=== PATIENT | male | born 1975 | race American Indian/Alaskan Native ===

== ENCOUNTER 2018-08-25 13:57 | Emergency (ER) | payer MEDICAID ==
[2018-08-25 14:08] VITALS: BP 145/101
--- NOTE | 2018-08-25 15:51 | Emergency Department Report ---
ED General Adult HPI - General Chief complaint: Medical Clearance Stated complaint: GENERAL SICKNESS Time Seen by Provider: 08/25/18 15:18 Source: patient Mode of arrival: Ambulatory Limitations: Other - History of Present Illness Initial comments: 43-year-old male presents to the ED initially with complaints of wanting to get his whole body "checked out." Patient reports history of chronic neck and back pain and is having an exacerbation of this time. He also states he would like to get a refill on his asthma pump, and needs to get eyeglasses. -: unknown Location: neck, back Radiation: non-radiation Quality: aching Improves with: rest Worsens with: movement Associated Symptoms: denies: fever/chills, nausea/vomiting, shortness of breath - Related Data Previous Rx's Medication Instructions Recorded Last Taken Type ALBUTEROL Inhaler(NF) [VENTOLIN 1 puff IH Q4HR PRN #1 inha 08/25/18 Unknown Rx Inhaler(NF)] Naproxen [Naprosyn] 500 mg PO BID #20 tablet 08/25/18 Unknown Rx Allergies Allergy/AdvReac Type Severity Reaction Status Date / Time No Known Allergies Allergy Unverified 08/25/18 14:08 ED Review of Systems ROS: Stated complaint: GENERAL SICKNESS Other details as noted in HPI Comment: All other systems reviewed and negative Constitutional: denies: chills, fever Respiratory: denies: cough, shortness of breath Cardiovascular: denies: chest pain Musculoskeletal: back pain ED Past Medical Hx - Past Medical History Previous Medical History?: Yes Hx Seizures: Yes - Surgical History Past Surgical History?: No - Social History Smoking Status: Current Every Day Smoker Substance Use Type: None - Medications Home Medications: Home Medications Medication Instructions Recorded Confirmed Last Taken Type ALBUTEROL Inhaler(NF) [VENTOLIN 1 puff IH Q4HR PRN #1 inha 08/25/18 Unknown Rx Inhaler(NF)] Naproxen [Naprosyn] 500 mg PO BID #20 tablet 08/25/18 Unknown Rx ED Physical Exam - General Limitations: Other General appearance: alert, in no apparent distress - Head Head exam: Present: atraumatic, normocephalic - Eye Eye exam: Present: normal appearance - ENT ENT exam: Present: mucous membranes moist - Neck Neck exam: Present: normal inspection, tenderness (mild paraspinal tenderness present), full ROM - Respiratory Respiratory exam: Present: normal lung sounds bilaterally. Absent: respiratory distress - Cardiovascular Cardiovascular Exam: Present: regular rate, normal rhythm - GI/Abdominal GI/Abdominal exam: Present: soft. Absent: distended, tenderness - Extremities Exam Extremities exam: Present: normal inspection, full ROM - Back Exam Back exam: Present: normal inspection. Absent: tenderness - Neurological Exam Neurological exam: Present: alert, normal gait - Psychiatric Psychiatric exam: Present: normal affect, normal mood - Skin Skin exam: Present: warm, dry, intact, normal color ED Course Vital Signs 08/25/18 14:05 Temperature 98.9 F Pulse Rate 94 H Respiratory 16 Rate Blood Pressure 145/101 O2 Sat by Pulse 98 Oximetry Critical care attestation.: If time is entered above; I have spent that time in minutes in the direct care of this critically ill patient, excluding procedure time. ED Disposition Clinical Impression: Chronic pain, Medication refill Disposition: - TO HOME OR SELFCARE Is pt being admited?: No Condition: Stable Instructions: Chronic Pain (ED) Prescriptions: ALBUTEROL Inhaler(NF) [VENTOLIN Inhaler(NF)] 1 puff IH Q4HR PRN #1 inha PRN Reason: Wheezing Naproxen [Naprosyn] 500 mg PO BID #20 tablet Referrals: [facility] [Provider Group] - 3-5 Days [facility] [Outside] - 3-5 Days Time of Disposition: 15:51
== END 2018-08-25 16:20 | disposition home or self-care (01) ==
LOC: ED 13:57
DX: G89.29 Other chronic pain (principal); M54.2 Cervicalgia; M54.9 Dorsalgia, unspecified; Z76.0 Encounter for issue of repeat prescription; F17.200 Nicotine dependence, unspecified, uncomplicated
CPT/HCPCS: 99282

== ENCOUNTER 2019-01-27 22:42 | Emergency (ER) | payer MEDICAID ==
--- NOTE | 2019-01-27 23:49 | XRay Report ---
PROCEDURE: Right hand. TECHNIQUE: 2 views. HISTORY: Pain at base of thumb that started on Tuesday. COMPARISONS: None. FINDINGS: The bones appear intact without fracture or dislocation. The joint spaces appear normal. The soft tis sues are unremarkable. IMPRESSION: Normal study. This document is electronically signed by Yohannes Thomas MD., January 27 2019 11:46:43 PM ET
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
[2019-01-28 06:40] VITALS: BP 122/72
== END 2019-01-28 07:16 | disposition home or self-care (01) ==
LOC: ED 22:42
DX: S63.621A Sprain of interphalangeal joint of right thumb, initial encounter (principal); I10 Essential (primary) hypertension; E11.9 Type 2 diabetes mellitus without complications; F17.200 Nicotine dependence, unspecified, uncomplicated; Z21 Asymptomatic human immunodeficiency virus [HIV] infection status; W51.XXXA Accidental striking against or bumped into by another person, initial encounter; Y93.89 Activity, other specified; Y92.488 Other paved roadways as the place of occurrence of the external cause; Y99.8 Other external cause status
CPT/HCPCS: 99283

== ENCOUNTER 2019-02-06 15:32 | Emergency (ER) | payer MEDICAID ==
[2019-02-06 16:15] VITALS: BP 123/89
--- NOTE | 2019-02-06 16:16 | Emergency Department Report ---
Chief Complaint: Medical Clearance Stated Complaint: SUBSTANCE ABUSE Time Seen by Provider: 02/06/19 16:12 - HPI History of Present Illness: This is a 43 y.o. male that presents to ER for help detoxing from substance abuse. Patient states he last used cocaine 2 days ago. Denies SI/HI. - Exam Vital Signs: Vital Signs 02/06/19 16:12 Temperature 97.7 F Pulse Rate 106 H Respiratory 18 Rate Blood Pressure 123/89 O2 Sat by Pulse 99 Oximetry MSE screening note: Focused history and physical exam performed. Due to findings the following was ordered: labs ED Disposition for MSE Condition: Stable
[2019-02-06 17:22] LABS: Hematocrit 44.9 % (35.5-45.6); Hemoglobin 15.2 gm/dl (11.8-15.2); Mean Corpuscular HGB Conc 34 % (32-34); Mean Corpuscular Volume 94 fl (84-94); Platelet Count 142 K/mm3 (140-440); Red Cell Distribution Width 14.1 % (13.2-15.2)
[2019-02-06 17:26] LABS: Bilirubin,Urine NEG (Negative); Blood,Urine NEG (Negative); Color,Urine Amber (Yellow); Protein,Urine <15 mg/dL mg/dL (Negative)
[2019-02-06 17:33] LABS: Amphetamine Screen,Urine PRESUMPTIVE NEGATIVE; Benzodiazepines Screen,Urine PRESUMPTIVE NEGATIVE; Cannabinoid Screen,Urine PRESUMPTIVE NEGATIVE; Cocaine Screen,Urine PRESUMPTIVE NEGATIVE; Methadone Screen,Urine PRESUMPTIVE NEGATIVE; Opiate Screen,Urine PRESUMPTIVE NEGATIVE
[2019-02-06 17:36] LABS: BUN/Creatinine Ratio 8; Blood Urea Nitrogen 8 mg/dL (9-20); Calcium 8.6 mg/dL (8.4-10.2); Hemolysis Index 12
[2019-02-06 19:10] LABS: Basophils % (Manual) 0 % (0.0-1.8); Total Cells Counted 100
[2019-02-06 19:11] LABS: Anisocytosis 1+; Platelet Estimate Consistent w Auto
[2019-02-06 19:12] LABS: Ovalocytes Few
== END 2019-02-06 19:00 | disposition left against medical advice (07) ==
LOC: ED 15:32
DX: F14.10 Cocaine abuse, uncomplicated (principal); Z53.21 Procedure and treatment not carried out due to patient leaving prior to being seen by health care provider
CPT/HCPCS: 36415; 80048; 80307; 81001; 85007; 85025; G0480; 80320

== ENCOUNTER 2019-02-23 16:44 | Emergency (ER) | payer MEDICAID ==
[2019-02-23 16:49] VITALS: BP 125/85
[2019-02-23] MEDS ORDERED: PROVENTIL IH ONE (16:52)
[2019-02-23] MEDS ORDERED: DELTASONE PO ONE (16:52)
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
== END 2019-02-23 17:00 | disposition home or self-care (01) ==
LOC: ED 16:44
DX: J06.9 Acute upper respiratory infection, unspecified (principal); J45.909 Unspecified asthma, uncomplicated; I10 Essential (primary) hypertension; E11.9 Type 2 diabetes mellitus without complications; F14.10 Cocaine abuse, uncomplicated; Z21 Asymptomatic human immunodeficiency virus [HIV] infection status
CPT/HCPCS: 94640; 99283; J7512

== ENCOUNTER 2019-03-07 20:36 | Emergency (ER) | payer MEDICAID ==
--- NOTE | 2019-03-07 21:04 | Emergency Department Report ---
Blank Doc - Documentation Documentation: This is a 43-year-old male that presents with abdominal pain with n/v. This initial assessment/diagnostic orders/clinical plan/treatment(s) is/are subject to change based on patient's health status, clinical progression and re- assessment by fellow clinical providers in the ED. Further treatment and workup at subsequent clinical providers discretion. Patient/guardians urged not to elope from the ED as their condition may be serious if not clinically assessed and managed. Initial orders include: 1- Patient sent to [facility] for further evaluation and treatment 2- labs 3- UA
[2019-03-07 21:06] VITALS: BP 143/96
[2019-03-07 21:42] LABS: Bilirubin,Urine NEG (Negative); Blood,Urine NEG (Negative); Color,Urine Yellow (Yellow); Protein,Urine <15 mg/dL mg/dL (Negative)
[2019-03-07 23:04] LABS: Hematocrit 44.3 % (35.5-45.6); Hemoglobin 15.2 gm/dl (11.8-15.2); Mean Corpuscular HGB Conc 34 % (32-34); Mean Corpuscular Volume 94 fl (84-94); Platelet Count 126 K/mm3 (140-440); Red Blood Count 4.71 M/mm3 (3.65-5.03); Red Cell Distribution Width 14.2 % (13.2-15.2)
[2019-03-07 23:05] LABS: Basophils % (Auto) 0.5 % (0.0-1.8); Eosinophils # (Auto) 0.2 K/mm3 (0.0-0.4); Lymphocytes # (Auto) 1.4 K/mm3 (1.2-5.4); Lymphocytes % (Auto) 44.9 % (13.4-35.0); Monocytes # (Auto) 0.4 K/mm3 (0.0-0.8)
[2019-03-07 23:13] LABS: Alanine Aminotransferase 99 units/L (7-56); Albumin 3.6 g/dL (3.9-5); BUN/Creatinine Ratio 5; Bilirubin,Direct 0.5 mg/dL (0-0.2); Blood Urea Nitrogen 6 mg/dL (9-20); Hemolysis Index 7
[2019-03-08] MEDS ORDERED: TORADOL IV ONE (00:10)
[2019-03-08] MEDS ORDERED: ZOFRAN IV ONE (00:10)
[2019-03-08] MEDS ORDERED: NACL 0.9% 1000 ML 1,000 ML IV ONE (00:10)
--- NOTE | 2019-03-08 00:22 | Emergency Department Report ---
ED Abdominal Pain HPI - General Chief Complaint: Abdominal Pain Stated Complaint: ABD PAIN Time Seen by Provider: 03/07/19 21:03 Source: patient Mode of arrival: Ambulatory Limitations: No Limitations - History of Present Illness Initial Comments: pt is a 6 history of seizures, diabetes, HIV, hypertension, and schizophrenia who presents for abdominal pain with n/v 5 days symptoms exacerbated by eating symptoms relieved by nothing. Pt denies fever or chills last n/v yesterday , last po intake 5 hrs ago. MD Complaint: abdominal pain Onset/Timin -: days(s) Location: RUQ Radiation: none Migration to: no migration Severity: moderate Severity scale (0 -10): 10 Quality: aching, sharp Consistency: constant Improves With: nothing Worsens With: eating Associated Symptoms: nausea, vomiting. denies: diarrhea, fever, dysuria - Related Data Previous Rx's Medication Instructions Recorded Last Taken Type Haloperidol [Haldol] 5 mg PO BID #60 tablet 10/12/18 Unknown Rx predniSONE [Deltasone] 40 mg PO QDAY 5 Days #10 tab 10/17/18 Unknown Rx ALBUTEROL Inhaler (OR & NICU) 2 puff IH QID PRN #1 inhalation 02/23/19 Unknown Rx [ProAir HFA Inhaler] Amoxicillin 500 mg PO BID #20 capsule 02/23/19 Unknown Rx Benzonatate [Tessalon Perles] 100 mg PO Q12H PRN #20 capsule 02/23/19 Unknown Rx Fluticasone [Flonase] 1 spray NS QDAY #1 bottle 02/23/19 Unknown Rx predniSONE [Deltasone] 20 mg PO DAILY #5 tablet 02/23/19 Unknown Rx Allergies Allergy/AdvReac Type Severity Reaction Status Date / Time No Known Allergies Allergy Verified 02/23/19 16:51 ED Review of Systems ROS: Stated complaint: ABD PAIN Other details as noted in HPI Constitutional: denies: chills, fever Eyes: denies: eye pain, eye discharge, vision change ENT: denies: ear pain, throat pain Respiratory: denies: cough, shortness of breath, wheezing Cardiovascular: denies: chest pain, palpitations Endocrine: no symptoms reported Gastrointestinal: abdominal pain, nausea, vomiting. 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) Hx Diabetes: Yes Hx Seizures: Yes Hx Psychiatric Treatment: Yes (cocaine abuse) Hx HIV: Yes (no treatment received) Additional medical history: NECK AND BACK PAIN, Speech impedement - Surgical History Past Surgical History?: Yes Additional Surgical History: 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-BLOOD CLOTS - Social History Smoking Status: Current Every Day Smoker Substance Use Type: Alcohol - Medications Home Medications: Home Medications Medication Instructions Recorded Confirmed Last Taken Type Haloperidol [Haldol] 5 mg PO BID #60 tablet 10/12/18 Unknown Rx predniSONE [Deltasone] 40 mg PO QDAY 5 Days #10 tab 10/17/18 Unknown Rx ALBUTEROL Inhaler (OR & NICU) 2 puff IH QID PRN #1 inhalation 02/23/19 Unknown Rx [ProAir HFA Inhaler] Amoxicillin 500 mg PO BID #20 capsule 02/23/19 Unknown Rx Benzonatate [Tessalon Perles] 100 mg PO Q12H PRN #20 capsule 02/23/19 Unknown Rx Fluticasone [Flonase] 1 spray NS QDAY #1 bottle 02/23/19 Unknown Rx predniSONE [Deltasone] 20 mg PO DAILY #5 tablet 02/23/19 Unknown Rx ED Physical Exam - General Limitations: No Limitations General appearance: alert, in no apparent distress - Head Head exam: Present: atraumatic, normocephalic - Eye Eye exam: Present: normal appearance, PERRL, EOMI Pupils: Present: normal accommodation - ENT ENT exam: Present: normal orophraynx, mucous membranes moist, TM's normal bilaterally, normal external ear exam - Neck Neck exam: Present: normal inspection, full ROM. Absent: tenderness, meningismus, lymphadenopathy, thyromegaly - Respiratory Respiratory exam: Present: normal lung sounds bilaterally. Absent: respiratory distress, wheezes, stridor, chest wall tenderness - Cardiovascular Cardiovascular Exam: Present: regular rate, normal rhythm, normal heart sounds. Absent: systolic murmur, diastolic murmur, rubs, gallop - GI/Abdominal GI/Abdominal exam: Present: soft, tenderness (RUQ ), hyperactive bowel sounds. Absent: guarding, rebound, rigid, bruit, hernia - Rectal Rectal exam: Present: deferred - Extremities Exam Extremities exam: Present: normal inspection - Back Exam Back exam: Present: normal inspection, full ROM. Absent: tenderness, CVA tenderness (R), CVA tenderness (L), muscle spasm, paraspinal tenderness, vertebral tenderness, rash noted - Neurological Exam Neurological exam: Present: alert, oriented X3, CN II-XII intact, normal gait - Psychiatric Psychiatric exam: Present: normal affect, normal mood - Skin Skin exam: Present: warm, dry, intact, normal color. Absent: rash ED Course Vital Signs 03/07/19 21:04 Temperature 98.5 F Pulse Rate 103 H Respiratory 18 Rate Blood Pressure 143/96 O2 Sat by Pulse 100 Oximetry ED Medical Decision Making - Lab Data Result diagrams: 03/07/19 22:34 03/07/19 22:34 - Medical Decision Making Patient has eloped prior to completion of treatment and evaluation, condition is unkown , pt's contact number called x 3 with no answer, [facility] police notfied advised they attempt to locate patient Critical care attestation.: If time is entered above; I have spent that time in minutes in the direct care of this critically ill patient, excluding procedure time. ED Disposition Clinical Impression: Abdominal pain Qualifiers: Abdominal location: lower abdomen, unspecified Qualified Code(s): R10.30 - Lower abdominal pain, unspecified Disposition: 07 ELOPED Is pt being admited?: No Does the pt Need Aspirin: No Condition: Critical Instructions: Acute Abdominal Pain (ED) Referrals: ELIZABETH STREETER MD [Primary Care Provider] - 3-5 Days Time of Disposition: 03:49
--- NOTE | 2019-03-08 04:18 | Cat Scan Report ---
PROCEDURE: CT ABDOMEN PELVIS W CON TECHNIQUE: Computerized axial tomography of the abdomen and pelvis was performed after the IV inject ion of iodinated nonionic contrast. CT DOSE LENGTH PRODUCT: mGycm HISTORY: abd pain COMPARISONS: None . FINDINGS: Visualized lower thorax: No significant abnormality. Liver: Normal size and attenuation. Spleen: Normal size and attenuation. Gallbladder and biliary system: There is cholelithiasis. There is no cholecystitis or biliary ductal dilatation.. Pancreas: Normal. Adrenals: Normal. Kidneys: Normal. GI tract: There is no bowel obstruction, colitis or enteritis. The appendix is not discretely identi fied. There is no indirect evidence of appendicitis. . Lymph nodes and mesentery: Normal. Vasculature: Normal.. Bladder: Normal. Reproductive organs: Normal. Peritoneum: There is no ascites, free air, abscess or adenopathy.. Musculoskeletal structures: No significant abnormality. IMPRESSION: There is cholelithiasis. There is no cholecystitis or biliary ductal dilatation.. There is no bowel obstruction, colitis or enteritis. The appendix is not discretely identified. There is no indirect evidence of appendicitis. . There is no ascites, free air, abscess or adenopathy.. . This document is electronically signed by Kit Eubanks MD., March 08 2019 04:16:37 AM ET
== END 2019-03-08 02:25 | disposition left against medical advice (07) ==
LOC: ED 20:36
DX: R10.30 Lower abdominal pain, unspecified (principal); I10 Essential (primary) hypertension; E11.9 Type 2 diabetes mellitus without complications; F14.10 Cocaine abuse, uncomplicated; F17.200 Nicotine dependence, unspecified, uncomplicated; I25.2 Old myocardial infarction; Z79.899 Other long term (current) drug therapy
CPT/HCPCS: 36415; 74177; 80048; 80076; 81001; 83690; 85025; 99284; Q9967

== ENCOUNTER 2019-03-16 18:01 | Emergency (ER) | payer MEDICAID | END 2019-03-16 18:53 | disposition left against medical advice (07) | LOC: ED 18:01 | DX: R41.82 Altered mental status, unspecified (principal); Z53.21 Procedure and treatment not carried out due to patient leaving prior to being seen by health care provider ==

== ENCOUNTER 2019-04-17 15:40 | Emergency (ER) | payer MEDICAID ==
[2019-04-17 15:46] VITALS: BP 130/72
--- NOTE | 2019-04-17 15:47 | Emergency Department Report ---
Chief Complaint: Nausea/Vomiting/Diarrhea Stated Complaint: NAUSEA Time Seen by Provider: 04/17/19 15:44 - HPI History of Present Illness: This is a 43 y.o. M. that presents to the ER with decreased appetite x 5 days. Denies pain, n/v/d - Exam Vital Signs: Vital Signs 04/17/19 15:44 Temperature 97.9 F Pulse Rate 101 H Respiratory 18 Rate Blood Pressure 130/72 O2 Sat by Pulse 99 Oximetry MSE screening note: Focused history and physical exam performed. Due to findings the following was ordered: This initial assessment/diagnostic orders/clinical plan/treatment(s) is/are sub ject to change based on patient's health status, clinical progression and re- assessment by fellow clinical providers in the ED. Further treatment and workup at subsequent clinical providers discretion. Patient/guardians urged not to elope from the ED as their condition may be serious if not clinically assessed and managed. Initial orders include: 1- Patient sent to [facility] for further evaluation and treatment ED Disposition for MSE Condition: Stable
[2019-04-17 16:21] LABS: Hematocrit 42.2 % (35.5-45.6); Hemoglobin 14.1 gm/dl (11.8-15.2); Mean Corpuscular HGB Conc 33 % (32-34); Mean Corpuscular Volume 94 fl (84-94); Platelet Count 102 K/mm3 (140-440); Red Cell Distribution Width 14.5 % (13.2-15.2)
[2019-04-17 16:50] LABS: Alanine Aminotransferase 116 units/L (7-56); Albumin 3.2 g/dL (3.9-5); BUN/Creatinine Ratio 6; Blood Urea Nitrogen 7 mg/dL (9-20); Calcium 8.4 mg/dL (8.4-10.2); Hemolysis Index 6
[2019-04-17] MEDS ORDERED: NACL 0.9% 1000 ML 1,000 ML IV ONE (17:02)
[2019-04-17] MEDS ORDERED: ZOFRAN IV ONE (17:02)
[2019-04-17] MEDS ORDERED: K-DUR PO ONE (17:02)
[2019-04-17 18:46] LABS: Bacteria,Urine 1+ /HPF (Negative); Bilirubin,Urine NEG (Negative); Blood,Urine MOD (Negative); Color,Urine Yellow (Yellow); Mucus,Urine FEW /HPF; Protein,Urine <15 mg/dL mg/dL (Negative); WBC,Urine < 1.0 /HPF (0.0-6.0)
--- NOTE | 2019-04-17 20:27 | Emergency Department Report ---
ED General Adult HPI - General Chief complaint: Nausea/Vomiting/Diarrhea Stated complaint: NAUSEA Time Seen by Provider: 04/17/19 15:44 Source: patient, EMS Mode of arrival: Ambulatory Limitations: No Limitations - History of Present Illness Initial comments: 43-year-old Afro-[place] male with a reported past medical history hypertension, HIV, diabetes, illicit drug use, liver disease, seizure disorder, and TBI in childhood, presents to emergency department complaining of nausea. States he's been having some nausea off and on for the past several weeks, but denies any vomiting or diarrhea. Reports no chest pain or palpitations, no fever, chills, sweats, no presyncope. He reports no hematemesis, no hematochezia or no hematuria. Radiation: non-radiation Consistency: constant Improves with: none Worsens with: none Associated Symptoms: denies: confusion, chest pain, cough, diaphoresis, fever/chills, loss of appetite, malaise, nausea/vomiting, rash, shortness of breath, syncope, weakness Treatments Prior to Arrival: none - Related Data Previous Rx's Medication Instructions Recorded Last Taken Type Haloperidol [Haldol] 5 mg PO BID #60 tablet 10/12/18 Unknown Rx predniSONE [Deltasone] 40 mg PO QDAY 5 Days #10 tab 10/17/18 Unknown Rx ALBUTEROL Inhaler (OR & NICU) 2 puff IH QID PRN #1 inhalation 02/23/19 Unknown Rx [ProAir HFA Inhaler] Amoxicillin 500 mg PO BID #20 capsule 02/23/19 Unknown Rx Benzonatate [Tessalon Perles] 100 mg PO Q12H PRN #20 capsule 02/23/19 Unknown Rx Fluticasone [Flonase] 1 spray NS QDAY #1 bottle 02/23/19 Unknown Rx predniSONE [Deltasone] 20 mg PO DAILY #5 tablet 02/23/19 Unknown Rx Ondansetron [Zofran Odt] 4 mg PO Q8HR #20 tab.rapdis 04/17/19 Unknown Rx Potassium Chloride [K-Dur] 20 meq PO QDAY #7 tablet 04/17/19 Unknown Rx Allergies Allergy/AdvReac Type Severity Reaction Status Date / Time No Known Allergies Allergy Verified 04/17/19 15:40 ED Review of Systems ROS: Stated complaint: NAUSEA Other details as noted in HPI Constitutional: denies: chills, fever Eyes: denies: eye pain, eye discharge, vision change ENT: denies: ear pain, throat pain Respiratory: denies: cough, shortness of breath, wheezing Cardiovascular: denies: chest pain, palpitations Endocrine: no symptoms reported Gastrointestinal: denies: abdominal pain, nausea, diarrhea Genitourinary: denies: urgency, dysuria Musculoskeletal: 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) Hx Diabetes: Yes Hx Seizures: Yes Hx Psychiatric Treatment: Yes (cocaine abuse) Hx HIV: Yes (no treatment received) Additional medical history: NECK AND BACK PAIN, Speech impedement - Surgical History Additional Surgical History: 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-BLOOD CLOTS - Social History Smoking Status: Current Every Day Smoker Substance Use Type: None - Medications Home Medications: Home Medications Medication Instructions Recorded Confirmed Last Taken Type Haloperidol [Haldol] 5 mg PO BID #60 tablet 10/12/18 Unknown Rx predniSONE [Deltasone] 40 mg PO QDAY 5 Days #10 tab 10/17/18 Unknown Rx ALBUTEROL Inhaler (OR & NICU) 2 puff IH QID PRN #1 inhalation 02/23/19 Unknown Rx [ProAir HFA Inhaler] Amoxicillin 500 mg PO BID #20 capsule 02/23/19 Unknown Rx Benzonatate [Tessalon Perles] 100 mg PO Q12H PRN #20 capsule 02/23/19 Unknown Rx Fluticasone [Flonase] 1 spray NS QDAY #1 bottle 02/23/19 Unknown Rx predniSONE [Deltasone] 20 mg PO DAILY #5 tablet 02/23/19 Unknown Rx Ondansetron [Zofran Odt] 4 mg PO Q8HR #20 tab.rapdis 04/17/19 Unknown Rx Potassium Chloride [K-Dur] 20 meq PO QDAY #7 tablet 04/17/19 Unknown Rx ED Physical Exam - General Limitations: No Limitations General appearance: alert, in no apparent distress - Head Head exam: Present: atraumatic, normocephalic - Eye Eye exam: Present: normal appearance, PERRL Pupils: Present: normal accommodation - ENT ENT exam: Present: normal exam, normal orophraynx, mucous membranes moist - Neck Neck exam: Present: normal inspection - Respiratory Respiratory exam: Present: normal lung sounds bilaterally. Absent: respiratory distress, wheezes, rales, chest wall tenderness, accessory muscle use, decreased breath sounds - Cardiovascular Cardiovascular Exam: Present: regular rate, normal rhythm. Absent: systolic murmur, diastolic murmur, rubs, gallop - GI/Abdominal GI/Abdominal exam: Present: soft, normal bowel sounds. Absent: distended, guarding, hyperactive bowel sounds, hypoactive bowel sounds, mass - Rectal Rectal exam: Present: deferred, normal inspection. Absent: black stool, bloody stool, fecal impaction, normal prostate, prostate tenderness - Extremities Exam Extremities exam: Present: normal inspection, full ROM, normal capillary refill - Back Exam Back exam: Present: normal inspection, full ROM. Absent: CVA tenderness (R), CVA tenderness (L), muscle spasm, paraspinal tenderness, vertebral tenderness - Neurological Exam Neurological exam: Present: alert, oriented X3, CN II-XII intact, normal gait. Absent: reflexes normal - Psychiatric Psychiatric exam: Present: normal affect, normal mood. Absent: flat affect, manic, homicidal ideation, suicidal ideation - Skin Skin exam: Present: warm, dry, intact, normal color. Absent: rash, cyanosis, diaphoretic, erythema, urticaria, petechiae, pallor, abrasion ED Course Vital Signs 04/17/19 15:44 Temperature 97.9 F Pulse Rate 101 H Respiratory 18 Rate Blood Pressure 130/72 O2 Sat by Pulse 99 Oximetry ED Medical Decision Making - Lab Data Result diagrams: 04/17/19 16:07 04/17/19 16:07 Critical care attestation.: If time is entered above; I have spent that time in minutes in the direct care of this critically ill patient, excluding procedure time. ED Disposition Clinical Impression: Hypokalemia, Elevated liver enzymes, Nausea alone Disposition: - TO HOME OR SELFCARE Is pt being admited?: No Does the pt Need Aspirin: No Condition: Stable Instructions: Acute Nausea and Vomiting (ED), Hypokalemia (ED) Prescriptions: Potassium Chloride [K-Dur] 20 meq PO QDAY #7 tablet Ondansetron [Zofran Odt] 4 mg PO Q8HR #20 tab.rapdis Referrals: ELIZABETH STREETER MD [Primary Care Provider] - 3-5 Days
== END 2019-04-17 21:09 | disposition home or self-care (01) ==
LOC: ED 15:40
DX: E87.6 Hypokalemia (principal); R94.5 Abnormal results of liver function studies; I10 Essential (primary) hypertension; E11.9 Type 2 diabetes mellitus without complications; Z21 Asymptomatic human immunodeficiency virus [HIV] infection status; G40.909 Epilepsy, unspecified, not intractable, without status epilepticus; F14.10 Cocaine abuse, uncomplicated; F17.200 Nicotine dependence, unspecified, uncomplicated
CPT/HCPCS: 36415; 80053; 81001; 83690; 83735; 85027; 96374; 99284; J2405; J7030; 96361

== ENCOUNTER 2019-04-21 19:26 | Emergency (ER) | payer MEDICAID ==
--- NOTE | 2019-04-21 20:31 | Emergency Department Report ---
Blank Doc - Documentation Documentation: I went to examine the patient but unfortunately patient eloped before seen by me.
[2019-04-21 20:49] VITALS: BP 146/102
== END 2019-04-21 21:15 ==
LOC: ED 19:26
DX: M79.18 Myalgia, other site (principal); Z53.21 Procedure and treatment not carried out due to patient leaving prior to being seen by health care provider

== ENCOUNTER 2019-05-09 21:25 | Emergency (ER) | payer MEDICAID | END 2019-05-10 00:38 | disposition left against medical advice (07) | LOC: ED 21:25 | DX: R11.2 Nausea with vomiting, unspecified (principal); Z53.21 Procedure and treatment not carried out due to patient leaving prior to being seen by health care provider ==

== ENCOUNTER 2019-05-18 14:33 | Emergency (ER) | payer MEDICAID ==
[2019-05-18 14:42] VITALS: BP 141/100
--- NOTE | 2019-05-18 14:45 | Emergency Department Report ---
Chief Complaint: Sore Throat Stated Complaint: SORE THROAT Time Seen by Provider: 05/18/19 14:36 - HPI History of Present Illness: This is a 43-year-old female nontoxic well in appearance with no signs of distress presents to the ED with complaint of sore throat. Patient denies any drooling or hoarseness, fever, chills, headache, nausea, vomiting, chest pain or SOB. This initial assessment/diagnostic orders/clinical plan/treatment(s) is/are subject to change based on patients health status, clinical progression and re- assessment by fellow clinical providers in the ED. Further treatment and workup at subsequent clinical providers discretion. Patient/guardian urged not to elope from the ED as their condition may be serious if not clinically assessed and managed. Initial orders include: Rapid strep ACC for further evaluation. - ROS Review of Systems: HEENT: sore throat - Exam Vital Signs: Vital Signs 05/18/19 14:40 Temperature 97.8 F Pulse Rate 119 H Respiratory 20 Rate Blood Pressure 141/100 [Left] O2 Sat by Pulse 98 Oximetry MSE screening note: Focused history and physical exam performed. Due to findings the following was ordered: ED Medical Decision Making - Lab Data Lab Results 05/18/19 Range/Units 15:00 Group A Strep Rapid Negative (Negative) ED Disposition for MSE Disposition: Z-07 ELOPED Condition: Stable
== END 2019-05-18 16:11 | disposition left against medical advice (07) ==
LOC: ED 14:33
DX: J02.9 Acute pharyngitis, unspecified (principal)
CPT/HCPCS: 87116; 87430; 99283

== ENCOUNTER 2019-05-27 16:17 | Emergency (ER) | payer MEDICAID ==
[2019-05-27 16:46] VITALS: BP 135/97
--- NOTE | 2019-05-27 16:48 | Event Note ---
ED Screening Note Date of service: 05/27/19 Time: 16:46 ED Screening Note: This is a 43 y.o. M. that presents to the ER with low back pain and neck for 2 weeks. He also reports a fever/chills. Denies Injury This initial assessment/diagnostic orders/clinical plan/treatment(s) is/are subject to change based on patients health status, clinical progression and re- assessment by fellow clinical providers in the ED. Further treatment and workup at subsequent clinical providers discretion. Patient/guardian urged not to elope from the ED as their condition may be serious if not clinically assessed and managed. Initial orders include:
== END 2019-05-27 18:29 | disposition left against medical advice (07) ==
LOC: ED 16:17
DX: R50.9 Fever, unspecified (principal); Z53.21 Procedure and treatment not carried out due to patient leaving prior to being seen by health care provider

== ENCOUNTER 2019-05-31 23:38 | Emergency (ER) | payer MEDICAID ==
[2019-06-01 00:39] VITALS: BP 134/92
== END 2019-06-01 01:15 | disposition left against medical advice (07) ==
LOC: ED 23:38
DX: H92.01 Otalgia, right ear (principal); Z53.21 Procedure and treatment not carried out due to patient leaving prior to being seen by health care provider

== ENCOUNTER 2019-06-02 16:02 | Emergency (ER) | payer MEDICAID ==
[2019-06-02 16:14] VITALS: BP 134/79
--- NOTE | 2019-06-02 16:21 | Emergency Department Report ---
ED ENT HPI - General Chief complaint: Earache Stated complaint: NOT EATING Time Seen by Provider: 06/02/19 16:16 Source: patient Mode of arrival: Ambulatory Limitations: No Limitations - History of Present Illness Initial comments: 43 y/o male comes in for left ear pain started today. Has no taken anything for pain. No fevers. MD complaint: ear pain -: This afternoon Location: R ear Severity: mild Severity scale (0 -10): 0 Quality: aching Consistency: intermittent Improves with: none Worsens with: none - Related Data Previous Rx's Medication Instructions Recorded Last Taken Type Haloperidol [Haldol] 5 mg PO BID #60 tablet 10/12/18 Unknown Rx predniSONE [Deltasone] 40 mg PO QDAY 5 Days #10 tab 10/17/18 Unknown Rx ALBUTEROL Inhaler (OR & NICU) 2 puff IH QID PRN #1 inhalation 02/23/19 Unknown Rx [ProAir HFA Inhaler] Amoxicillin 500 mg PO BID #20 capsule 02/23/19 Unknown Rx Benzonatate [Tessalon Perles] 100 mg PO Q12H PRN #20 capsule 02/23/19 Unknown Rx Fluticasone [Flonase] 1 spray NS QDAY #1 bottle 02/23/19 Unknown Rx predniSONE [Deltasone] 20 mg PO DAILY #5 tablet 02/23/19 Unknown Rx Ondansetron [Zofran Odt] 4 mg PO Q8HR #20 tab.rapdis 04/17/19 Unknown Rx Potassium Chloride [K-Dur] 20 meq PO QDAY #7 tablet 04/17/19 Unknown Rx Ibuprofen [Motrin 600 MG tab] 600 mg PO Q8H PRN #15 tablet 06/02/19 Unknown Rx Allergies Allergy/AdvReac Type Severity Reaction Status Date / Time No Known Allergies Allergy Verified 05/18/19 14:34 ED Dental HPI - General Chief complaint: Earache Stated complaint: NOT EATING Time Seen by Provider: 06/02/19 16:16 Source: patient Mode of arrival: Ambulatory Limitations: No Limitations - Related Data Previous Rx's Medication Instructions Recorded Last Taken Type Haloperidol [Haldol] 5 mg PO BID #60 tablet 10/12/18 Unknown Rx predniSONE [Deltasone] 40 mg PO QDAY 5 Days #10 tab 10/17/18 Unknown Rx ALBUTEROL Inhaler (OR & NICU) 2 puff IH QID PRN #1 inhalation 02/23/19 Unknown Rx [ProAir HFA Inhaler] Amoxicillin 500 mg PO BID #20 capsule 02/23/19 Unknown Rx Benzonatate [Tessalon Perles] 100 mg PO Q12H PRN #20 capsule 02/23/19 Unknown Rx Fluticasone [Flonase] 1 spray NS QDAY #1 bottle 02/23/19 Unknown Rx predniSONE [Deltasone] 20 mg PO DAILY #5 tablet 02/23/19 Unknown Rx Ondansetron [Zofran Odt] 4 mg PO Q8HR #20 tab.rapdis 04/17/19 Unknown Rx Potassium Chloride [K-Dur] 20 meq PO QDAY #7 tablet 04/17/19 Unknown Rx Ibuprofen [Motrin 600 MG tab] 600 mg PO Q8H PRN #15 tablet 06/02/19 Unknown Rx Allergies Allergy/AdvReac Type Severity Reaction Status Date / Time No Known Allergies Allergy Verified 05/18/19 14:34 ED Review of Systems ROS: Stated complaint: NOT EATING Other details as noted in HPI Comment: All other systems reviewed and negative ED Past Medical Hx - Past Medical History Previous Medical History?: Yes Hx Hypertension: Yes 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) Hx Diabetes: Yes Hx Seizures: Yes Hx Psychiatric Treatment: Yes (cocaine abuse, Bipolar, Schizophrenia) Hx HIV: Yes Additional medical history: NECK AND BACK PAIN, Speech impedement - Surgical History Past Surgical History?: Yes Additional Surgical History: 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-BLOOD CLOTS - Social History Smoking Status: Current Every Day Smoker - Medications Home Medications: Home Medications Medication Instructions Recorded Confirmed Last Taken Type Haloperidol [Haldol] 5 mg PO BID #60 tablet 10/12/18 Unknown Rx predniSONE [Deltasone] 40 mg PO QDAY 5 Days #10 tab 10/17/18 Unknown Rx ALBUTEROL Inhaler (OR & NICU) 2 puff IH QID PRN #1 inhalation 02/23/19 Unknown Rx [ProAir HFA Inhaler] Amoxicillin 500 mg PO BID #20 capsule 02/23/19 Unknown Rx Benzonatate [Tessalon Perles] 100 mg PO Q12H PRN #20 capsule 02/23/19 Unknown Rx Fluticasone [Flonase] 1 spray NS QDAY #1 bottle 02/23/19 Unknown Rx predniSONE [Deltasone] 20 mg PO DAILY #5 tablet 02/23/19 Unknown Rx Ondansetron [Zofran Odt] 4 mg PO Q8HR #20 tab.rapdis 04/17/19 Unknown Rx Potassium Chloride [K-Dur] 20 meq PO QDAY #7 tablet 04/17/19 Unknown Rx Ibuprofen [Motrin 600 MG tab] 600 mg PO Q8H PRN #15 tablet 06/02/19 Unknown Rx ED Physical Exam - General Limitations: No Limitations General appearance: alert, in no apparent distress - Head Head exam: Present: atraumatic, normocephalic - Eye Eye exam: Present: normal appearance - ENT ENT exam: Present: mucous membranes moist, TM's normal bilaterally - Neck Neck exam: Present: normal inspection, full ROM. Absent: lymphadenopathy - Neurological Exam Neurological exam: Present: alert, oriented X3, normal gait - Psychiatric Psychiatric exam: Present: normal affect, normal mood - Skin Skin exam: Present: warm, dry, intact, normal color. Absent: rash ED Course Vital Signs 06/02/19 16:13 Temperature 97.8 F Pulse Rate 108 H Respiratory 18 Rate Blood Pressure 134/79 O2 Sat by Pulse 100 Oximetry ED Medical Decision Making - Medical Decision Making 43 y/o male comes in for right ear pain. Dx homes with rx for ibuprofen Critical care attestation.: If time is entered above; I have spent that time in minutes in the direct care of this critically ill patient, excluding procedure time. ED Disposition Clinical Impression: Ear pain, right Disposition: DC-01 TO HOME OR SELFCARE Is pt being admited?: No Does the pt Need Aspirin: No Condition: Stable Instructions: Earache (ED) Additional Instructions: take pain medication as prescribed. Prescriptions: Ibuprofen [Motrin 600 MG tab] 600 mg PO Q8H PRN #15 tablet PRN Reason: Pain Referrals: [facility] [Outside] - 3-5 Days
== END 2019-06-02 16:35 | disposition home or self-care (01) ==
LOC: ED 16:02
DX: H92.01 Otalgia, right ear (principal); I10 Essential (primary) hypertension; E11.9 Type 2 diabetes mellitus without complications; F31.9 Bipolar disorder, unspecified; F20.9 Schizophrenia, unspecified; F14.10 Cocaine abuse, uncomplicated; F17.200 Nicotine dependence, unspecified, uncomplicated; Z98.890 Other specified postprocedural states; Z86.73 Personal history of transient ischemic attack (TIA), and cerebral infarction without residual deficits; Z79.899 Other long term (current) drug therapy
CPT/HCPCS: 99281

== ENCOUNTER 2019-06-30 01:59 | Emergency (ER) | payer MEDICAID ==
[2019-06-30] MEDS ORDERED: IBUPROFEN PO ONE (02:32)
[2019-06-30] MEDS ORDERED: NACL 0.9% 1000 ML 1,000 ML IV ONE (02:32)
[2019-06-30] MEDS ORDERED: ZOFRAN IV ONE (02:32)
[2019-06-30 02:36] LABS: Hematocrit 45.7 % (35.5-45.6); Hemoglobin 15.2 gm/dl (11.8-15.2); Mean Corpuscular HGB Conc 33 % (32-34); Mean Corpuscular Volume 93 fl (84-94); Platelet Count 114 K/mm3 (140-440); Red Cell Distribution Width 14.5 % (13.2-15.2)
--- NOTE | 2019-06-30 02:47 | Emergency Department Report ---
ED General Adult HPI - General Chief complaint: Abdominal Pain Stated complaint: MOUTH PAIN/STOMACH ACHE Time Seen by Provider: 06/30/19 02:21 Source: patient Mode of arrival: Ambulatory Limitations: No Limitations - History of Present Illness Initial comments: Patient is a 44-year-old male presents to the emergency room with complaints of right upper dental pain that began last night. He states he has not seen a dentist in several years. Denies any facial swelling, fever. He is tolerating his secretions and by mouth intake without difficulty. He states he is also having some periumbilical abdominal cramping that began while he was in the [facility] department tonight. He denies any nausea, vomiting, diarrhea, urinary symptoms. States he has been having bowel movements. He states he has a past medical history of HIV positive. Denies any allergies to medications. - Related Data Previous Rx's Medication Instructions Recorded Last Taken Type Haloperidol [Haldol] 5 mg PO BID #60 tablet 10/12/18 Unknown Rx predniSONE [Deltasone] 40 mg PO QDAY 5 Days #10 tab 10/17/18 Unknown Rx ALBUTEROL Inhaler (OR & NICU) 2 puff IH QID PRN #1 inhalation 02/23/19 Unknown Rx [ProAir HFA Inhaler] Amoxicillin 500 mg PO BID #20 capsule 02/23/19 Unknown Rx Benzonatate [Tessalon Perles] 100 mg PO Q12H PRN #20 capsule 02/23/19 Unknown Rx Fluticasone [Flonase] 1 spray NS QDAY #1 bottle 02/23/19 Unknown Rx predniSONE [Deltasone] 20 mg PO DAILY #5 tablet 02/23/19 Unknown Rx Ondansetron [Zofran Odt] 4 mg PO Q8HR #20 tab.rapdis 04/17/19 Unknown Rx Potassium Chloride [K-Dur] 20 meq PO QDAY #7 tablet 04/17/19 Unknown Rx Ibuprofen [Motrin 600 MG tab] 600 mg PO Q8H PRN #15 tablet 06/02/19 Unknown Rx Dicyclomine [Bentyl] 20 mg PO TID PRN #14 tablet 06/30/19 Unknown Rx Ibuprofen [Motrin 600 MG tab] 600 mg PO Q8H PRN #14 tablet 06/30/19 Unknown Rx Allergies Allergy/AdvReac Type Severity Reaction Status Date / Time No Known Allergies Allergy Verified 05/18/19 14:34 ED Review of Systems ROS: Stated complaint: MOUTH PAIN/STOMACH ACHE Other details as noted in HPI Comment: All other systems reviewed and negative ED Past Medical Hx - Past Medical History Previous Medical History?: Yes Hx Hypertension: Yes 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) Hx Diabetes: Yes Hx Seizures: Yes Hx Psychiatric Treatment: Yes (cocaine abuse, Bipolar, Schizophrenia) Hx HIV: Yes Additional medical history: NECK AND BACK PAIN, Speech impedement - Surgical History Past Surgical History?: Yes Additional Surgical History: 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-BLOOD CLOTS - Social History Smoking Status: Current Every Day Smoker Substance Use Type: None - Medications Home Medications: Home Medications Medication Instructions Recorded Confirmed Last Taken Type Haloperidol [Haldol] 5 mg PO BID #60 tablet 10/12/18 Unknown Rx predniSONE [Deltasone] 40 mg PO QDAY 5 Days #10 tab 10/17/18 Unknown Rx ALBUTEROL Inhaler (OR & NICU) 2 puff IH QID PRN #1 inhalation 02/23/19 Unknown Rx [ProAir HFA Inhaler] Amoxicillin 500 mg PO BID #20 capsule 02/23/19 Unknown Rx Benzonatate [Tessalon Perles] 100 mg PO Q12H PRN #20 capsule 02/23/19 Unknown Rx Fluticasone [Flonase] 1 spray NS QDAY #1 bottle 02/23/19 Unknown Rx predniSONE [Deltasone] 20 mg PO DAILY #5 tablet 02/23/19 Unknown Rx Ondansetron [Zofran Odt] 4 mg PO Q8HR #20 tab.rapdis 04/17/19 Unknown Rx Potassium Chloride [K-Dur] 20 meq PO QDAY #7 tablet 04/17/19 Unknown Rx Ibuprofen [Motrin 600 MG tab] 600 mg PO Q8H PRN #15 tablet 06/02/19 Unknown Rx Dicyclomine [Bentyl] 20 mg PO TID PRN #14 tablet 06/30/19 Unknown Rx Ibuprofen [Motrin 600 MG tab] 600 mg PO Q8H PRN #14 tablet 06/30/19 Unknown Rx ED Physical Exam - General Limitations: No Limitations General appearance: alert, in no apparent distress - Head Head exam: Present: atraumatic, normocephalic - Eye Eye exam: Present: normal appearance, PERRL, EOMI - ENT ENT exam: Present: normal orophraynx, mucous membranes moist, other (prior dental fillings, no obvious cracked teeth, no obvious dental caries, no induration/erythema of the gums, uvula is midline, no uvular edema) - Respiratory Respiratory exam: Present: normal lung sounds bilaterally. Absent: respiratory distress, wheezes, rales, rhonchi, stridor, chest wall tenderness, accessory muscle use, decreased breath sounds, prolonged expiratory - Cardiovascular Cardiovascular Exam: Present: regular rate, normal rhythm, normal heart sounds. Absent: systolic murmur, diastolic murmur, rubs, gallop - GI/Abdominal GI/Abdominal exam: Present: soft, normal bowel sounds. Absent: distended, tenderness, guarding, rebound, rigid - Neurological Exam Neurological exam: Present: alert, oriented X3 - Psychiatric Psychiatric exam: Present: normal affect, normal mood - Skin Skin exam: Present: warm, dry, intact ED Course Vital Signs 06/30/19 06/30/19 06/30/19 02:05 03:21 04:14 Temperature 97.9 F 98 F Pulse Rate 107 H 88 Respiratory 18 14 16 Rate Blood Pressure 113/82 Blood Pressure 120/74 [Right] O2 Sat by Pulse 100 100 Oximetry ED Medical Decision Making - Lab Data Result diagrams: 06/30/19 02:16 06/30/19 02:16 Lab Results 06/30/19 06/30/19 06/30/19 Range/Units 02:16 02:16 02:23 WBC 4.6 (4.5-11.0) K/mm3 RBC 4.90 (3.65-5.03) M/mm3 Hgb 15.2 (11.8-15.2) gm/dl Hct 45.7 H (35.5-45.6) % MCV 93 (84-94) fl MCH 31 (28-32) pg MCHC 33 (32-34) % RDW 14.5 (13.2-15.2) % Plt Count 114 L (140-440) K/mm3 Seg Neutrophils % [employer] Sodium 141 (137-145) mmol/L Potassium 4.1 (3.6-5.0) mmol/L Chloride 107.4 H (98-107) mmol/L Carbon Dioxide 24 (22-30) mmol/L Anion Gap 14 mmol/L BUN 7 L (9-20) mg/dL Creatinine 0.9 (0.8-1.5) mg/dL Estimated GFR > 60 ml/min BUN/Creatinine Ratio 8 % Glucose 73 L (75-100) mg/dL Calcium 8.7 (8.4-10.2) mg/dL Total Bilirubin 0.90 (0.1-1.2) mg/dL AST 106 H (5-40) units/L ALT 113 H (7-56) units/L Alkaline Phosphatase 66 (35-129) units/L Total Protein 8.1 (6.3-8.2) g/dL Albumin 3.7 L (3.9-5) g/dL Albumin/Globulin Ratio 0.8 % Lipase 49 (13-60) units/L Urine Color (Yellow) Urine Turbidity (Clear) Urine pH (5.0-7.0) Ur Specific [place] (1.003-1.030) Urine Protein (Negative) mg/dL Urine Glucose (UA) (Negative) mg/dL Urine Ketones (Negative) mg/dL Urine Blood (Negative) Urine Nitrite (Negative) Urine Bilirubin (Negative) Urine Urobilinogen (<2.0) mg/dL Ur Leukocyte Esterase (Negative) Urine WBC (Auto) (0.0-6.0) /HPF Urine RBC (Auto) (0.0-6.0) /HPF U Epithel Cells (Auto) (0-13.0) /HPF Calcium Oxalate Crystal Urine Mucus /HPF 06/30/19 Range/Units 02:25 WBC (4.5-11.0) K/mm3 RBC (3.65-5.03) M/mm3 Hgb (11.8-15.2) gm/dl Hct (35.5-45.6) % MCV (84-94) fl MCH (28-32) pg MCHC (32-34) % RDW (13.2-15.2) % Plt Count (140-440) K/mm3 Seg Neutrophils % Sodium (137-145) mmol/L Potassium (3.6-5.0) mmol/L Chloride (98-107) mmol/L Carbon Dioxide (22-30) mmol/L Anion Gap mmol/L BUN (9-20) mg/dL Creatinine (0.8-1.5) mg/dL Estimated GFR ml/min BUN/Creatinine Ratio % Glucose (75-100) mg/dL Calcium (8.4-10.2) mg/dL Total Bilirubin (0.1-1.2) mg/dL AST (5-40) units/L ALT (7-56) units/L Alkaline Phosphatase (35-129) units/L Total Protein (6.3-8.2) g/dL Albumin (3.9-5) g/dL Albumin/Globulin Ratio % Lipase (13-60) units/L Urine Color Jeanine (Yellow) Urine Turbidity Clear (Clear) Urine pH 5.0 (5.0-7.0) Ur Specific [place] 1.018 (1.003-1.030) Urine Protein <15 mg/dl (Negative) mg/dL Urine Glucose (UA) Neg (Negative) mg/dL Urine Ketones Neg (Negative) mg/dL Urine Blood Neg (Negative) Urine Nitrite Neg (Negative) Urine Bilirubin Neg (Negative) Urine Urobilinogen 4.0 (<2.0) mg/dL Ur Leukocyte Esterase Neg (Negative) Urine WBC (Auto) 2.0 (0.0-6.0) /HPF Urine RBC (Auto) 5.0 (0.0-6.0) /HPF U Epithel Cells (Auto) 1.0 (0-13.0) /HPF Calcium Oxalate Crystal 2+ Urine Mucus 1+ /HPF - Medical Decision Making Patient is a 44-year-old male presents to the emergency room with complaints of right upper dental pain that began last night. He states he has not seen a dentist in several years. Denies any facial swelling, fever. He is tolerating his secretions and by mouth intake without difficulty. He states he is also having some periumbilical abdominal cramping that began while he was in the emergency department tonight. He denies any nausea, vomiting, diarrhea, urinary symptoms. States he has been having bowel movements. He states he has a past medical history of HIV positive. Denies any allergies to medications. on VSS. exam: prior dental fillings, no obvious cracked teeth, no obvious dental caries, no induration/erythema of the gums, uvula is midline, no uvular edema, no abd tenderness, normal bowel sounds. labs with chronically elevated liver enzymes otherwise stable. pt given ibuprofen for dental pain and 1L of NS. pt states he is feeling much better. pt given prescription for bentyl and ibuprofen. advised pt to please take medication as prescribed as needed. drink plenty of fluids. please follow-up with a dentist, GI doctor, infectious disease doctor in the next 2-3 days. given list of dental clinics. Return to the emergency room for any new or worsening symptoms. Critical care attestation.: If time is entered above; I have spent that time in minutes in the direct care of this critically ill patient, excluding procedure time. ED Disposition Clinical Impression: Pain, dental Abdominal pain Qualifiers: Abdominal location: periumbilical Qualified Code(s): R10.33 - Periumbilical pain Disposition: TO HOME OR SELFCARE Is pt being admited?: No Does the pt Need Aspirin: No Condition: Stable Instructions: Abdominal Pain (ED), Toothache (ED) Additional Instructions: Please take medication as prescribed as needed. drink plenty of fluids. please follow-up with a dentist, GI doctor, infectious disease doctor. given list of dental clinics. Return to the emergency room for any new or worsening symptoms. Prescriptions: Dicyclomine [Bentyl] 20 mg PO TID PRN #14 tablet PRN Reason: abdominal cramping Ibuprofen [Motrin 600 MG tab] 600 mg PO Q8H PRN #14 tablet PRN Reason: dental pain Referrals: [facility] [Provider Group] - 2-3 Days [facility] [Outside] - 2-3 Days ENRIQUE SPENCER MD [Staff Physician] - 2-3 Days [facility] [Provider Group] - 2-3 Days a, dentist [Other] - 2-3 Days Time of Disposition: 03:51 Print Language: HUNGARIAN
[2019-06-30 02:52] LABS: Alanine Aminotransferase 113 units/L (7-56); Albumin 3.7 g/dL (3.9-5); BUN/Creatinine Ratio 8; Blood Urea Nitrogen 7 mg/dL (9-20); Calcium 8.7 mg/dL (8.4-10.2); Hemolysis Index 67
[2019-06-30 02:54] LABS: Bilirubin,Urine NEG (Negative); Blood,Urine NEG (Negative); Calcium Oxalate Crystals,Urine 2+; Color,Urine Amber (Yellow); Mucus,Urine 1+ /HPF; Protein,Urine <15 mg/dL mg/dL (Negative)
[2019-06-30 04:18] VITALS: BP 120/74
[2019-06-30 05:04] LABS: Basophils % (Manual) 0 % (0.0-1.8); Total Cells Counted 100
[2019-06-30 05:05] LABS: Anisocytosis 1+; Platelet Estimate Consistent w Auto
== END 2019-06-30 04:14 | disposition home or self-care (01) ==
LOC: ED 01:59
DX: K08.89 Other specified disorders of teeth and supporting structures (principal); R10.33 Periumbilical pain; I10 Essential (primary) hypertension; Z86.73 Personal history of transient ischemic attack (TIA), and cerebral infarction without residual deficits; E11.9 Type 2 diabetes mellitus without complications; F31.9 Bipolar disorder, unspecified; F20.9 Schizophrenia, unspecified; F14.10 Cocaine abuse, uncomplicated; Z98.890 Other specified postprocedural states; F17.200 Nicotine dependence, unspecified, uncomplicated; Z79.899 Other long term (current) drug therapy
CPT/HCPCS: 36415; 80053; 81001; 83690; 85007; 85025; 96374; 99283; J2405; J7030; 96361

== ENCOUNTER 2019-07-01 17:31 | Emergency (ER) | payer MEDICAID ==
[2019-07-01 17:46] VITALS: BP 144/103
--- NOTE | 2019-07-01 17:49 | Emergency Department Report ---
Chief Complaint: Anxiety Stated Complaint: NEEDS MEDS FOR CALMNESS Time Seen by Provider: 07/01/19 17:45 - HPI History of Present Illness: This is a 44-year-old male nontoxic, well in appearnce with no signs of distress presents to the ED reuqesting to increased his dose of Halodol and Benztropine. Patient does still have a lot of medications and is just requesting for a higher dose. Patient denies any SI/HI. Patient denies any anxiety, fever, chills, nausea, vomiting, chest pain, shortness of breathe, numbness or tingling. Denies hallucinations. Patient denies any drug allergies or PMH. - Exam Physical Exam: No SI/HI. Normal in appearnce. No psychosis. Normal acting. MSE screening note: Focused history and physical exam performed. Due to findings the following was ordered: ED Medical Decision Making - Medical Decision Making Patient was instructed to Follow-up with a primary care doctor in 3-5 days or if symptoms worsen and continue return to emergency room as soon as possible. At time of discharge, the patient does not seem toxic or ill in appearance. No acute signs of distress noted. Patient agrees to discharge treatment plan of care. No further questions noted by the patient. ED Disposition for MSE Clinical Impression: Medication refill Disposition: Z-07 MED SCREENING EXAM-LEFT Is pt being admited?: No Does the pt Need Aspirin: No Condition: Stable Additional Instructions: Follow-up with a primary care doctor in 3-5 days or if symptoms worsen and continue return to emergency room as soon as possible. Referrals: PRIMARY MD ELLI [Referring] - 3-5 Days EHSAN KAUFFMAN MD [Staff Physician] - 3-5 Days [facility] [Outside] - 3-5 Days [facility] [Outside] - 3-5 Days
== END 2019-07-01 18:30 | disposition left against medical advice (07) ==
LOC: ED 17:31
DX: Z53.21 Procedure and treatment not carried out due to patient leaving prior to being seen by health care provider (principal)

== ENCOUNTER 2019-07-01 19:20 | Emergency (ER) | payer MEDICAID ==
[2019-07-01 19:34] VITALS: BP 154/92
--- NOTE | 2019-07-01 21:15 | Emergency Department Report ---
ED General Adult HPI - General Chief complaint: Psych Stated complaint: MH Time Seen by Provider: 07/01/19 20:49 Source: patient Mode of arrival: Ambulatory Limitations: No Limitations - History of Present Illness Initial comments: 44 yo M presents to ED requesting that he receive a haldol and benadryl shot. Pt states someone usually comes to him to administer them, but he missed the appointment b/c he was in [facility]. Unclear what pt's psychiatric diagnosis is. Pt denies SI, HI, hallucinations. Severity scale (0 -10): 1 - Related Data Previous Rx's Medication Instructions Recorded Last Taken Type Haloperidol [Haldol] 5 mg PO BID #60 tablet 10/12/18 Unknown Rx predniSONE [Deltasone] 40 mg PO QDAY 5 Days #10 tab 10/17/18 Unknown Rx ALBUTEROL Inhaler (OR & NICU) 2 puff IH QID PRN #1 inhalation 02/23/19 Unknown Rx [ProAir HFA Inhaler] Amoxicillin 500 mg PO BID #20 capsule 02/23/19 Unknown Rx Benzonatate [Tessalon Perles] 100 mg PO Q12H PRN #20 capsule 02/23/19 Unknown Rx Fluticasone [Flonase] 1 spray NS QDAY #1 bottle 02/23/19 Unknown Rx predniSONE [Deltasone] 20 mg PO DAILY #5 tablet 02/23/19 Unknown Rx Ondansetron [Zofran Odt] 4 mg PO Q8HR #20 tab.rapdis 04/17/19 Unknown Rx Potassium Chloride [K-Dur] 20 meq PO QDAY #7 tablet 04/17/19 Unknown Rx Ibuprofen [Motrin 600 MG tab] 600 mg PO Q8H PRN #15 tablet 06/02/19 Unknown Rx Dicyclomine [Bentyl] 20 mg PO TID PRN #14 tablet 06/30/19 Unknown Rx Ibuprofen [Motrin 600 MG tab] 600 mg PO Q8H PRN #14 tablet 06/30/19 Unknown Rx Allergies Allergy/AdvReac Type Severity Reaction Status Date / Time No Known Allergies Allergy Verified 05/18/19 14:34 ED Review of Systems ROS: Stated complaint: MH Other details as noted in HPI Comment: All other systems reviewed and negative Psychiatric: denies: depression, auditory hallucinations, visual hallucinations, homicidal thoughts, suicidal thoughts ED Past Medical Hx - Past Medical History Previous Medical History?: Yes Hx Hypertension: Yes 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) Hx Diabetes: Yes Hx Seizures: Yes Hx Psychiatric Treatment: Yes (cocaine abuse, Bipolar, Schizophrenia) Hx HIV: Yes Additional medical history: NECK AND BACK PAIN, Speech impedement - Surgical History Past Surgical History?: Yes Additional Surgical History: 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-BLOOD CLOTS - Social History Smoking Status: Current Every Day Smoker Substance Use Type: None - Medications Home Medications: Home Medications Medication Instructions Recorded Confirmed Last Taken Type Haloperidol [Haldol] 5 mg PO BID #60 tablet 10/12/18 Unknown Rx predniSONE [Deltasone] 40 mg PO QDAY 5 Days #10 tab 10/17/18 Unknown Rx ALBUTEROL Inhaler (OR & NICU) 2 puff IH QID PRN #1 inhalation 02/23/19 Unknown Rx [ProAir HFA Inhaler] Amoxicillin 500 mg PO BID #20 capsule 02/23/19 Unknown Rx Benzonatate [Tessalon Perles] 100 mg PO Q12H PRN #20 capsule 02/23/19 Unknown Rx Fluticasone [Flonase] 1 spray NS QDAY #1 bottle 02/23/19 Unknown Rx predniSONE [Deltasone] 20 mg PO DAILY #5 tablet 02/23/19 Unknown Rx Ondansetron [Zofran Odt] 4 mg PO Q8HR #20 tab.rapdis 04/17/19 Unknown Rx Potassium Chloride [K-Dur] 20 meq PO QDAY #7 tablet 04/17/19 Unknown Rx Ibuprofen [Motrin 600 MG tab] 600 mg PO Q8H PRN #15 tablet 06/02/19 Unknown Rx Dicyclomine [Bentyl] 20 mg PO TID PRN #14 tablet 06/30/19 Unknown Rx Ibuprofen [Motrin 600 MG tab] 600 mg PO Q8H PRN #14 tablet 06/30/19 Unknown Rx ED Physical Exam - General Limitations: No Limitations General appearance: alert, in no apparent distress - Head Head exam: Present: atraumatic, normocephalic - Eye Eye exam: Present: normal appearance, PERRL, EOMI - ENT ENT exam: Present: mucous membranes moist - Neck Neck exam: Present: normal inspection - Respiratory Respiratory exam: Present: normal lung sounds bilaterally. Absent: respiratory distress - Cardiovascular Cardiovascular Exam: Present: regular rate, normal rhythm - GI/Abdominal GI/Abdominal exam: Absent: distended - Extremities Exam Extremities exam: Present: normal inspection - Neurological Exam Neurological exam: Present: alert, oriented X3 - Psychiatric Psychiatric exam: Present: normal affect, normal mood - Skin Skin exam: Present: warm, dry, intact, normal color ED Course Vital Signs 07/01/19 07/01/19 19:26 20:00 Temperature 98.3 F 98.3 F Pulse Rate 86 86 Respiratory 16 16 Rate Blood Pressure 154/92 Blood Pressure 154/92 [Right] O2 Sat by Pulse 99 Oximetry Critical care attestation.: If time is entered above; I have spent that time in minutes in the direct care of this critically ill patient, excluding procedure time. ED Disposition Clinical Impression: Encounter for medication administration Disposition: DC-01 TO HOME OR SELFCARE Is pt being admited?: No Condition: Stable Referrals: [facility] [Outside] - 3-5 Days Time of Disposition: 21:12
== END 2019-07-01 21:38 | disposition home or self-care (01) ==
LOC: EEVIPCON 19:20 → ED 19:20
DX: F31.9 Bipolar disorder, unspecified (principal); F20.9 Schizophrenia, unspecified; I10 Essential (primary) hypertension; E11.9 Type 2 diabetes mellitus without complications; F14.10 Cocaine abuse, uncomplicated; F17.200 Nicotine dependence, unspecified, uncomplicated; Z98.890 Other specified postprocedural states; Z86.73 Personal history of transient ischemic attack (TIA), and cerebral infarction without residual deficits; Z79.899 Other long term (current) drug therapy
CPT/HCPCS: 99283

== ENCOUNTER 2019-07-15 00:17 | Emergency (ER) | payer MEDICAID ==
[2019-07-15 00:25] VITALS: BP 130/98
--- NOTE | 2019-07-15 00:53 | Emergency Department Report ---
ED Rash HPI - HPI Chief Complaint: Abdominal Pain Stated Complaint: ABD PAIN, FACE PAIN Time Seen by Provider: 07/15/19 00:36 Duration: 1 month Location: Head, Abdomen Suspected Cause: Unknown Rash Symptoms: Yes Itching, No Facial Swelling, No Tongue/Oral Swelling, No Breathing Difficulties, No Choking Sensation, No Wheezing/Dyspnea, No Peeling, No Blistering, No Fever, No Lightheaded, No Malaise, No Myalgias Severity: mild ED Review of Systems ROS: Stated complaint: ABD PAIN, FACE PAIN Other details as noted in HPI Comment: All other systems reviewed and negative ED Past Medical Hx - Past Medical History Previous Medical History?: Yes Hx Hypertension: Yes 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) Hx Diabetes: Yes Hx Seizures: Yes Hx Psychiatric Treatment: Yes (cocaine abuse, Bipolar, Schizophrenia) Hx HIV: Yes Additional medical history: NECK AND BACK PAIN, Speech impedement - Surgical History Past Surgical History?: Yes Additional Surgical History: 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-BLOOD CLOTS - Social History Smoking Status: Current Every Day Smoker Substance Use Type: None - Medications Home Medications: Home Medications Medication Instructions Recorded Confirmed Last Taken Type Haloperidol [Haldol] 5 mg PO BID #60 tablet 10/12/18 Unknown Rx predniSONE [Deltasone] 40 mg PO QDAY 5 Days #10 tab 10/17/18 Unknown Rx ALBUTEROL Inhaler (OR & NICU) 2 puff IH QID PRN #1 inhalation 02/23/19 Unknown Rx [ProAir HFA Inhaler] Amoxicillin 500 mg PO BID #20 capsule 02/23/19 Unknown Rx Benzonatate [Tessalon Perles] 100 mg PO Q12H PRN #20 capsule 02/23/19 Unknown Rx Fluticasone [Flonase] 1 spray NS QDAY #1 bottle 02/23/19 Unknown Rx predniSONE [Deltasone] 20 mg PO DAILY #5 tablet 02/23/19 Unknown Rx Ondansetron [Zofran Odt] 4 mg PO Q8HR #20 tab.rapdis 04/17/19 Unknown Rx Potassium Chloride [K-Dur] 20 meq PO QDAY #7 tablet 04/17/19 Unknown Rx Ibuprofen [Motrin 600 MG tab] 600 mg PO Q8H PRN #15 tablet 06/02/19 Unknown Rx Dicyclomine [Bentyl] 20 mg PO TID PRN #14 tablet 06/30/19 Unknown Rx Ibuprofen [Motrin 600 MG tab] 600 mg PO Q8H PRN #14 tablet 06/30/19 Unknown Rx Triamcinolone 0.1% [Kenalog 0.1% 1 applic TP TID #1 tube 07/15/19 Unknown Rx CREAM] diphenhydrAMINE [Benadryl CAP] 25 mg PO Q6HR PRN #14 capsule 07/15/19 Unknown Rx predniSONE [Deltasone] 20 mg PO QDAY #5 tab 07/15/19 Unknown Rx Rash Exam - Exam General: Vital signs noted. No distress. Alert and acting appropriately. HEENT: No Periorbital Edema, No Conjuctival Injection, No Chemosis, No Perioral Edema, No Tongue Edema, No Uvular Edema, No Compromised Airway, No Drooling Lungs: Yes Good Air Exchange (Normal Breath Sounds), No Wheezes, No Ronchi, No Stridor, No Cough, No Labored Respirations, No Retractions, No Use of Accessory Muscles, No Other Abnormal Lung Sounds Heart: Yes Regular, No Murmur Skin: Yes Maculopapular Rash (to the right chest/abd wall and right face) Other: Positive: Abdomen Normal, Neurologic Normal, Musculoskeletal Normal ED Course Vital Signs 07/15/19 00:21 Temperature 98.9 F Pulse Rate 104 H Respiratory 18 Rate Blood Pressure 130/98 O2 Sat by Pulse 100 Oximetry Critical care attestation.: If time is entered above; I have spent that time in minutes in the direct care of this critically ill patient, excluding procedure time. ED Disposition Clinical Impression: Dermatitis Disposition: - TO HOME OR SELFCARE Is pt being admited?: No Does the pt Need Aspirin: No Condition: Stable Instructions: Acute Rash (ED) Referrals: PRIMARY CARE, [Primary Care Provider] - 3-5 Days Time of Disposition: 00:53
== END 2019-07-15 01:32 | disposition home or self-care (01) ==
LOC: ED 00:17
DX: L30.9 Dermatitis, unspecified (principal); I10 Essential (primary) hypertension; E11.9 Type 2 diabetes mellitus without complications; F31.9 Bipolar disorder, unspecified; F20.9 Schizophrenia, unspecified; F14.10 Cocaine abuse, uncomplicated; F17.200 Nicotine dependence, unspecified, uncomplicated; Z98.890 Other specified postprocedural states; Z86.73 Personal history of transient ischemic attack (TIA), and cerebral infarction without residual deficits; Z79.899 Other long term (current) drug therapy
CPT/HCPCS: 99282

== ENCOUNTER 2019-07-22 14:33 | Emergency (ER) | payer MEDICAID ==
--- NOTE | 2019-07-22 17:47 | XRay Report ---
BILATERAL RIBS WITH CHEST X-RAY 5 VIEWS INDICATION / CLINICAL INFORMATION: left sided c/w pain. COMPARISON: None available. FINDINGS: No significant skeletal abnormality. No evidence of a pneumothorax. Signer Name: Ismael Liu MD FACR Signed: 07/22/2019 5:42 PM Workstation Name: [id number]
[2019-07-22] MEDS ORDERED: FLEXERIL PO ONE (20:51)
[2019-07-22] MEDS ORDERED: IBUPROFEN PO ONE (20:51)
[2019-07-22] MEDS ORDERED: TYLENOL PO ONE (20:51)
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
[2019-07-22 21:20] VITALS: BP 126/82
== END 2019-07-22 21:18 | disposition home or self-care (01) ==
LOC: ED 14:33
DX: S29.011A Strain of muscle and tendon of front wall of thorax, initial encounter (principal); S20.212A Contusion of left front wall of thorax, initial encounter; F31.9 Bipolar disorder, unspecified; F20.9 Schizophrenia, unspecified; I10 Essential (primary) hypertension; E11.9 Type 2 diabetes mellitus without complications; F14.10 Cocaine abuse, uncomplicated; F17.200 Nicotine dependence, unspecified, uncomplicated; Z21 Asymptomatic human immunodeficiency virus [HIV] infection status; Z79.899 Other long term (current) drug therapy; Z79.1 Long term (current) use of non-steroidal anti-inflammatories (NSAID); Z86.73 Personal history of transient ischemic attack (TIA), and cerebral infarction without residual deficits; Y04.0XXA Assault by unarmed brawl or fight, initial encounter; Y93.89 Activity, other specified; Y92.89 Other specified places as the place of occurrence of the external cause; Y99.8 Other external cause status
CPT/HCPCS: 71111; 99283

== ENCOUNTER 2020-03-28 20:46 | Emergency (ER) | payer MEDICAID ==
[2020-03-28 21:29] LABS: Basophils # (Auto) 0.1 K/mm3 (0.0-0.1); Basophils % (Auto) 0.8 % (0.0-1.8); Eosinophils # (Auto) 0.1 K/mm3 (0.0-0.4); Eosinophils % (Auto) 1.7 % (0.0-4.3); Hematocrit 42.4 % (35.5-45.6); Hemoglobin 13.8 gm/dl (11.8-15.2); Lymphocytes # (Auto) 2.1 K/mm3 (1.2-5.4); Lymphocytes % (Auto) 33.8 % (13.4-35.0); Mean Corpuscular HGB Conc 33 % (32-34); Mean Corpuscular Volume 95 fl (84-94); Monocytes % (Auto) 15.7 % (0.0-7.3); Platelet Count 161 K/mm3 (140-440); Red Blood Count 4.47 M/mm3 (3.65-5.03); Red Cell Distribution Width 15.2 % (13.2-15.2)
[2020-03-28 21:46] LABS: Alanine Aminotransferase 88 units/L (7-56); Albumin 3.9 g/dL (3.9-5); BUN/Creatinine Ratio 9; Blood Urea Nitrogen 9 mg/dL (9-20); Hemolysis Index 37
== END 2020-03-28 21:46 ==
LOC: ED 20:46
DX: R10.9 Unspecified abdominal pain (principal); Z53.21 Procedure and treatment not carried out due to patient leaving prior to being seen by health care provider
CPT/HCPCS: 36415; 80053; 85025

== ENCOUNTER 2020-10-08 00:58 | Emergency (ER) | payer SELFPAY ==
[2020-10-08] MEDS ORDERED: IBUPROFEN 800 MG TAB PO ONE (06:01)
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
== END 2020-10-08 06:15 | disposition home or self-care (01) ==
LOC: ED 00:58
DX: M79.602 Pain in left arm (principal); G89.29 Other chronic pain; F17.200 Nicotine dependence, unspecified, uncomplicated; I10 Essential (primary) hypertension; E11.9 Type 2 diabetes mellitus without complications; F25.0 Schizoaffective disorder, bipolar type; F14.90 Cocaine use, unspecified, uncomplicated; Z86.69 Personal history of other diseases of the nervous system and sense organs; Z21 Asymptomatic human immunodeficiency virus [HIV] infection status; Z79.899 Other long term (current) drug therapy; Z86.73 Personal history of transient ischemic attack (TIA), and cerebral infarction without residual deficits; Z98.890 Other specified postprocedural states
CPT/HCPCS: 99281

== ENCOUNTER 2021-01-05 23:30 | Emergency (ER) | payer SELFPAY ==
[2021-01-06 00:30] LABS: Hematocrit 43.5 % (35.5-45.6); Hemoglobin 14.4 gm/dl (11.8-15.2); Mean Corpuscular HGB Conc 33 % (32-34); Mean Corpuscular Volume 95 fl (84-94); Platelet Count 125 K/mm3 (140-440); Red Blood Count 4.59 M/mm3 (3.65-5.03); Red Cell Distribution Width 13.2 % (13.2-15.2)
[2021-01-06 00:31] LABS: Alanine Aminotransferase 94 units/L (7-56); Albumin 3.8 g/dL (3.9-5); BUN/Creatinine Ratio 9; Blood Urea Nitrogen 10 mg/dL (9-20); Hemolysis Index 5
[2021-01-06 02:05] VITALS: BP 118/85
[2021-01-06 02:20] LABS: Bilirubin,Urine NEG (Negative); Blood,Urine NEG (Negative); Color,Urine Yellow (Yellow); Mucus,Urine FEW /HPF; Protein,Urine <15 mg/dL mg/dL (Negative)
[2021-01-06 02:23] LABS: Platelet Estimate Consistent w Auto; Total Cells Counted 100
--- NOTE | 2021-01-06 02:24 | Emergency Department Report ---
ED General Adult HPI - General Chief complaint: Dizziness Stated complaint: FAINTING/ARM PAIN Time Seen by Provider: 01/06/21 02:13 Source: patient Mode of arrival: Ambulatory Limitations: No Limitations - History of Present Illness Initial comments: 45-year-old male presents to the ED for evaluation. Patient signed an complaints states arm pain. Triage note states: "Dizziness 'I feel like may pass out.' Nasal congestion. Denies cough. States urine has been differnent color. Fver off and on. Nausea and diarrhea. NOnlabored. MAEW." Patient tells m e he came to the ER so that he can get his Medicaid turned in and so that he can also get $4 for a Big Mac. - Related Data Previous Rx's Medication Instructions Recorded Last Taken Type haloperidoL [Haldol] 5 mg PO BID #60 tablet 10/12/18 Unknown Rx predniSONE [Deltasone] 40 mg PO QDAY 5 Days #10 tab 10/17/18 Unknown Rx Albuterol Mdi (or & Nicu Only) 2 puff IH QID PRN #1 inhalation 02/23/19 Unknown Rx [ProAir HFA Inhaler] Amoxicillin 500 mg PO BID #20 capsule 02/23/19 Unknown Rx Benzonatate [Tessalon Perles] 100 mg PO Q12H PRN #20 capsule 02/23/19 Unknown Rx Fluticasone [Flonase] 1 spray NS QDAY #1 bottle 02/23/19 Unknown Rx predniSONE [Deltasone] 20 mg PO DAILY #5 tablet 02/23/19 Unknown Rx Ondansetron [Zofran Odt] 4 mg PO Q8HR #20 tab.rapdis 04/17/19 Unknown Rx Potassium Chloride [K-Dur] 20 meq PO QDAY #7 tablet 04/17/19 Unknown Rx Ibuprofen [Motrin 600 MG tab] 600 mg PO Q8H PRN #15 tablet 06/02/19 Unknown Rx Dicyclomine [Bentyl] 20 mg PO TID PRN #14 tablet 06/30/19 Unknown Rx Ibuprofen [Motrin 600 MG tab] 600 mg PO Q8H PRN #14 tablet 06/30/19 Unknown Rx Triamcinolone 0.1% [Kenalog 0.1% 1 applic TP TID #1 tube 07/15/19 Unknown Rx CREAM] diphenhydrAMINE [Benadryl CAP] 25 mg PO Q6HR PRN #14 capsule 07/15/19 Unknown Rx predniSONE [Deltasone] 20 mg PO QDAY #5 tab 07/15/19 Unknown Rx Cyclobenzaprine [Flexeril] 10 mg PO Q8H PRN #15 tablet 07/22/19 Unknown Rx Ibuprofen [Motrin] 600 mg PO Q8H PRN #20 tablet 07/22/19 Unknown Rx Ibuprofen [Motrin 800 MG tab] 800 mg PO Q8HR PRN #30 tablet 10/08/20 Unknown Rx Allergies Allergy/AdvReac Type Severity Reaction Status Date / Time No Known Allergies Allergy Verified 05/18/19 14:34 ED Review of Systems ROS: Stated complaint: FAINTING/ARM PAIN Other details as noted in HPI ED Past Medical Hx - Past Medical History Previous Medical History?: Yes Hx Hypertension: Yes 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) Hx Diabetes: Yes Hx Seizures: Yes Hx Psychiatric Treatment: Yes (cocaine abuse, Bipolar, Schizophrenia) Hx HIV: Yes Additional medical history: NECK AND BACK PAIN, Speech impedement - Surgical History Past Surgical History?: Yes Additional Surgical History: 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-BLOOD CLOTS - Social History Smoking Status: Current Every Day Smoker Substance Use Type: None - Medications Home Medications: Home Medications Medication Instructions Recorded Confirmed Last Taken Type haloperidoL [Haldol] 5 mg PO BID #60 tablet 10/12/18 Unknown Rx predniSONE [Deltasone] 40 mg PO QDAY 5 Days #10 tab 10/17/18 Unknown Rx Albuterol Mdi (or & Nicu Only) 2 puff IH QID PRN #1 inhalation 02/23/19 Unknown Rx [ProAir HFA Inhaler] Amoxicillin 500 mg PO BID #20 capsule 02/23/19 Unknown Rx Benzonatate [Tessalon Perles] 100 mg PO Q12H PRN #20 capsule 02/23/19 Unknown Rx Fluticasone [Flonase] 1 spray NS QDAY #1 bottle 02/23/19 Unknown Rx predniSONE [Deltasone] 20 mg PO DAILY #5 tablet 02/23/19 Unknown Rx Ondansetron [Zofran Odt] 4 mg PO Q8HR #20 tab.rapdis 04/17/19 Unknown Rx Potassium Chloride [K-Dur] 20 meq PO QDAY #7 tablet 05/28/19 Unknown Rx Ibuprofen [Motrin 600 MG tab] 600 mg PO Q8H PRN #15 tablet 06/02/19 Unknown Rx Dicyclomine [Bentyl] 20 mg PO TID PRN #14 tablet 06/30/19 Unknown Rx Ibuprofen [Motrin 600 MG tab] 600 mg PO Q8H PRN #14 tablet 06/30/19 Unknown Rx Triamcinolone 0.1% [Kenalog 0.1% 1 applic TP TID #1 tube 07/15/19 Unknown Rx CREAM] diphenhydrAMINE [Benadryl CAP] 25 mg PO Q6HR PRN #14 capsule 07/15/19 Unknown Rx predniSONE [Deltasone] 20 mg PO QDAY #5 tab 07/15/19 Unknown Rx Cyclobenzaprine [Flexeril] 10 mg PO Q8H PRN #15 tablet 07/22/19 Unknown Rx Ibuprofen [Motrin] 600 mg PO Q8H PRN #20 tablet 07/22/19 Unknown Rx Ibuprofen [Motrin 800 MG tab] 800 mg PO Q8HR PRN #30 tablet 10/08/20 Unknown Rx ED Physical Exam - General Limitations: No Limitations ED Course Vital Signs 01/06/21 01/06/21 02:04 02:32 Temperature 98.7 F Pulse Rate 86 Respiratory 16 Rate Blood Pressure 118/85 [Left] O2 Sat by Pulse 98 Oximetry - Reevaluation(s) Reevaluation #1: 01/06/21 02:23 Glucose is 65. Patient currently eating a sandwich from the ED. ED Medical Decision Making - Lab Data Result diagrams: 01/05/21 23:57 01/05/21 23:57 - EKG Data -: EKG Interpreted by [facility] EKG shows normal: sinus rhythm, axis, intervals, QRS complexes, ST-T waves Rate: normal - EKG Data Interpretation: LV[facility] - Medical Decision Making Glucose is somewhat low at 65. Patient has mild elevation in his LFTs. Abdomen is benign. Remainder of labs are unremarkable. Vitals are normal. Patient given a meal tray. Will discharge at this time. Critical care attestation.: If time is entered above; I have spent that time in minutes in the direct care of this critically ill patient, excluding procedure time. ED Disposition Clinical Impression: Hypoglycemia Disposition: DC-01 TO HOME OR SELFCARE Is pt being admited?: No Condition: Stable Instructions: Hypoglycemia Referrals: PRIMARY CARE, [Primary Care Provider] - 3-5 Days [facility] [Provider Group] - 3-5 Days Time of Disposition: 02:27
== END 2021-01-06 03:26 | disposition home or self-care (01) ==
LOC: ED 23:30
DX: E11.649 Type 2 diabetes mellitus with hypoglycemia without coma (principal); I10 Essential (primary) hypertension; G40.909 Epilepsy, unspecified, not intractable, without status epilepticus; F25.0 Schizoaffective disorder, bipolar type; F17.200 Nicotine dependence, unspecified, uncomplicated; Z21 Asymptomatic human immunodeficiency virus [HIV] infection status; Z86.73 Personal history of transient ischemic attack (TIA), and cerebral infarction without residual deficits; Z79.899 Other long term (current) drug therapy
CPT/HCPCS: 36415; 80053; 81001; 84484; 85007; 85025; 93005; 99283

== ENCOUNTER 2021-01-27 22:47 | Emergency (ER) | payer SELFPAY ==
[2021-01-27] MEDS ORDERED: ACETAMINOPHEN 500 MG TAB PO ONE (23:21)
[2021-01-27 23:22] VITALS: BP 142/73
--- NOTE | 2021-01-27 23:25 | Emergency Department Report ---
ED General Adult HPI - General Stated complaint: RUNNY NOSE/BACK PAIN Source: patient, RN notes reviewed Limitations: No Limitations - History of Present Illness Initial comments: pt is a 45 y/o aam who presents for URI symptoms and chronic back pain , pain is rated as 4/10 aching intermittent. pt denies numbness no tingling, no fall injury or trauma. pt denies loss or decrease in bowel or bladder function. pt is currently ambulatory with steady gait and nad at this time. . - Related Data Previous Rx's Medication Instructions Recorded Last Taken Type haloperidoL [Haldol] 5 mg PO BID #60 tablet 10/12/18 Unknown Rx predniSONE [Deltasone] 40 mg PO QDAY 5 Days #10 tab 10/17/18 Unknown Rx Albuterol Mdi (or & Nicu Only) 2 puff IH QID PRN #1 inhalation 02/23/19 Unknown Rx [ProAir HFA Inhaler] Amoxicillin 500 mg PO BID #20 capsule 02/23/19 Unknown Rx Benzonatate [Tessalon Perles] 100 mg PO Q12H PRN #20 capsule 02/23/19 Unknown Rx Fluticasone [Flonase] 1 spray NS QDAY #1 bottle 02/23/19 Unknown Rx predniSONE [Deltasone] 20 mg PO DAILY #5 tablet 02/23/19 Unknown Rx Ondansetron [Zofran Odt] 4 mg PO Q8HR #20 tab.rapdis 04/17/19 Unknown Rx Potassium Chloride [K-Dur] 20 meq PO QDAY #7 tablet 04/17/19 Unknown Rx Ibuprofen [Motrin 600 MG tab] 600 mg PO Q8H PRN #15 tablet 06/02/19 Unknown Rx Dicyclomine [Bentyl] 20 mg PO TID PRN #14 tablet 06/30/19 Unknown Rx Ibuprofen [Motrin 600 MG tab] 600 mg PO Q8H PRN #14 tablet 06/30/19 Unknown Rx Triamcinolone 0.1% [Kenalog 0.1% 1 applic TP TID #1 tube 07/15/19 Unknown Rx CREAM] diphenhydrAMINE [Benadryl CAP] 25 mg PO Q6HR PRN #14 capsule 07/15/19 Unknown Rx predniSONE [Deltasone] 20 mg PO QDAY #5 tab 07/15/19 Unknown Rx Cyclobenzaprine [Flexeril] 10 mg PO Q8H PRN #15 tablet 07/22/19 Unknown Rx Ibuprofen [Motrin] 600 mg PO Q8H PRN #20 tablet 07/22/19 Unknown Rx Ibuprofen [Motrin 800 MG tab] 800 mg PO Q8HR PRN #30 tablet 10/08/20 Unknown Rx Loratadine 10 mg PO DAILY #30 tablet 01/27/21 Unknown Rx Naproxen 500 mg PO BID PRN #30 tablet 01/27/21 Unknown Rx Allergies Allergy/AdvReac Type Severity Reaction Status Date / Time No Known Allergies Allergy Verified 05/18/19 14:34 ED Review of Systems ROS: Stated complaint: RUNNY NOSE/BACK PAIN Other details as noted in HPI Constitutional: denies: chills, fever Eyes: denies: eye pain, eye discharge, vision change ENT: congestion. denies: ear pain, throat pain Respiratory: denies: cough, shortness of breath, wheezing Cardiovascular: denies: chest pain, palpitations Endocrine: no symptoms reported Gastrointestinal: denies: abdominal pain, nausea, diarrhea Genitourinary: denies: urgency, dysuria Musculoskeletal: back pain. 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) Hx Diabetes: Yes Hx Seizures: Yes Hx Psychiatric Treatment: Yes (cocaine abuse, Bipolar, Schizophrenia) Hx HIV: Yes Additional medical history: NECK AND BACK PAIN, Speech impedement - Surgical History Additional Surgical History: 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-BLOOD CLOTS - Social History Smoking Status: Current Every Day Smoker Substance Use Type: None - Medications Home Medications: Home Medications Medication Instructions Recorded Confirmed Last Taken Type haloperidoL [Haldol] 5 mg PO BID #60 tablet 10/12/18 Unknown Rx predniSONE [Deltasone] 40 mg PO QDAY 5 Days #10 tab 10/17/18 Unknown Rx Albuterol Mdi (or & Nicu Only) 2 puff IH QID PRN #1 inhalation 02/23/19 Unknown Rx [ProAir HFA Inhaler] Amoxicillin 500 mg PO BID #20 capsule 02/23/19 Unknown Rx Benzonatate [Tessalon Perles] 100 mg PO Q12H PRN #20 capsule 02/23/19 Unknown Rx Fluticasone [Flonase] 1 spray NS QDAY #1 bottle 02/23/19 Unknown Rx predniSONE [Deltasone] 20 mg PO DAILY #5 tablet 02/23/19 Unknown Rx Ondansetron [Zofran Odt] 4 mg PO Q8HR #20 tab.rapdis 04/17/19 Unknown Rx Potassium Chloride [K-Dur] 20 meq PO QDAY #7 tablet 04/17/19 Unknown Rx Ibuprofen [Motrin 600 MG tab] 600 mg PO Q8H PRN #15 tablet 06/02/19 Unknown Rx Dicyclomine [Bentyl] 20 mg PO TID PRN #14 tablet 06/30/19 Unknown Rx Ibuprofen [Motrin 600 MG tab] 600 mg PO Q8H PRN #14 tablet 06/30/19 Unknown Rx Triamcinolone 0.1% [Kenalog 0.1% 1 applic TP TID #1 tube 07/15/19 Unknown Rx CREAM] diphenhydrAMINE [Benadryl CAP] 25 mg PO Q6HR PRN #14 capsule 07/15/19 Unknown Rx predniSONE [Deltasone] 20 mg PO QDAY #5 tab 07/15/19 Unknown Rx Cyclobenzaprine [Flexeril] 10 mg PO Q8H PRN #15 tablet 07/22/19 Unknown Rx Ibuprofen [Motrin] 600 mg PO Q8H PRN #20 tablet 07/22/19 Unknown Rx Ibuprofen [Motrin 800 MG tab] 800 mg PO Q8HR PRN #30 tablet 10/08/20 Unknown Rx Loratadine 10 mg PO DAILY #30 tablet 01/27/21 Unknown Rx Naproxen 500 mg PO BID PRN #30 tablet 01/27/21 Unknown Rx ED Physical Exam - General General appearance: alert, in no apparent distress - Head Head exam: Present: normocephalic, normal inspection - Eye Eye exam: Present: normal appearance, PERRL, EOMI Pupils: Present: normal accommodation - ENT ENT exam: Present: mucous membranes moist, TM's normal bilaterally, normal external ear exam, other (turbinates boggy clear rhinorrhea no stridor or wheezing ) - Neck Neck exam: Present: normal inspection, full ROM. Absent: tenderness - Respiratory Respiratory exam: Present: normal lung sounds bilaterally. Absent: respiratory distress, wheezes, stridor, chest wall tenderness - Cardiovascular Cardiovascular Exam: Present: regular rate, normal rhythm, normal heart sounds. Absent: systolic murmur, diastolic murmur, rubs, gallop - GI/Abdominal GI/Abdominal exam: Present: soft, normal bowel sounds - Rectal Rectal exam: Present: deferred - Extremities Exam Extremities exam: Present: normal inspection, full ROM. Absent: tenderness - Back Exam Back exam: Present: normal inspection, full ROM. Absent: CVA tenderness (R), CVA tenderness (L), muscle spasm, paraspinal tenderness, vertebral tenderness - Neurological Exam Neurological exam: Present: alert, oriented X3, CN II-XII intact, normal gait, reflexes normal - Expanded Neurological Exam Expanded Patient oriented to: Present: person, place, time Speech: Present: fluid speech Motor strength exam: RUE: 5, LUE: 5, RLE: 5, LLE: 5 Best Eye Response (Gordy): (4) open spontaneously Best Motor Response (Gordy): (6) obeys commands Best Verbal Response (Gordy): (5) oriented [place] Total: 15 - Psychiatric Psychiatric exam: Present: normal affect, normal mood - Skin Skin exam: Present: warm, dry, intact, normal color. Absent: rash ED Medical Decision Making - Medical Decision Making this air URI and chronic low back pain , plan nsaids, otc cold meds , hydrate, follow up with pcp in 2-3 days. Critical care attestation.: If time is entered above; I have spent that time in minutes in the direct care of this critically ill patient, excluding procedure time. ED Disposition Clinical Impression: URI (upper respiratory infection) Qualifiers: URI type: unspecified viral URI Qualified Code(s): J06.9 - Acute upper respiratory infection, unspecified Back pain Qualifiers: Back pain location: low back pain Chronicity: acute Back pain laterality: left Sciatica presence: without sciatica Qualified Code(s): M54.5 - Low back pain Disposition: TO HOME OR SELFCARE Is pt being admited?: No Does the pt Need Aspirin: No Condition: Stable Instructions: Viral Respiratory Infection, Chronic Back Pain Prescriptions: Loratadine 10 mg PO DAILY #30 tablet Naproxen 500 mg PO BID PRN #30 tablet PRN Reason: pain Referrals: JIMI ORELLANA MD [Staff Physician] - 3-5 Days Forms: Work/School Release Form(ED) Time of Disposition: 23:32
== END 2021-01-27 23:45 | disposition home or self-care (01) ==
LOC: ED 22:47
DX: J06.9 Acute upper respiratory infection, unspecified (principal); M54.9 Dorsalgia, unspecified; I10 Essential (primary) hypertension; I25.2 Old myocardial infarction; F25.0 Schizoaffective disorder, bipolar type; F17.200 Nicotine dependence, unspecified, uncomplicated; Z21 Asymptomatic human immunodeficiency virus [HIV] infection status; Z79.899 Other long term (current) drug therapy; Z86.73 Personal history of transient ischemic attack (TIA), and cerebral infarction without residual deficits; Z86.69 Personal history of other diseases of the nervous system and sense organs
CPT/HCPCS: 99282